=== PATIENT | male | born 1965 | race Caucasian/White ===

== ENCOUNTER 2022-10-27 10:21 | Emergency (ER) | payer BC, SELFPAY ==
[2022-10-27 10:23] VITALS: BP 133/85; PULSE 87; RESP 18; TEMP 36.3; O2SAT 100; BMI 24.7
--- NOTE | 2022-10-27 10:37 | EX.ED.DYSGE1 ---
HPI History of Present Illness Chief Complaint: Other, Pain/Inj Detail of Chief Complaint: Hemorrhoid/rectal bleeding Informant: patient Narrative Narrative: Patient presents to the emergency department with concern that his hemorrhoid popped. Patient states that he developed a hemorrhoid about 4 5 days ago and had some rectal discomfort with a fleshy mass noted around his rectum. This morning he woke up and he had blood in his underwear. He has had history of hemorrhoids in the past. He denies fevers or chills. He denies abdominal pain. He denies any trauma to his rectum. PFSH PFSH Allergy/AdvReac Type Severity Reaction Status Date / Time No Known Allergies Allergy Verified 10/27/22 10:25 ROS ROS ED Review of Systems ROS Unobtainable: other Constitutional Constitutional ED: Reports lethargy; Denies chills, fever(s), sweats or weight loss Eyes Eyes: Denies blurry vision, change in vision or diplopia ENT ENT ED: Denies rhinorrhea or sore throat Cardiovascular Cardiovascular: Denies chest pain, orthopnea or racing heartbeat Respiratory/Chest Respiratory/Chest: Denies cough, dyspnea, dyspnea on exertion, orthopnea or sputum Gastrointestinal Gastrointestinal: Reports other Details: Hemorrhoid with rectal bleeding ; Denies abdominal pain, diarrhea, nausea or vomiting Genitourinary Genitourinary ED: Denies dysuria, hematuria or urinary frequency Musculoskeletal Musculoskeletal: Denies arthralgias, back pain, myalgias or neck pain Integumentary Denies abscess, Abrasions or rash Neurologic Neurologic: Denies headache(s) or weakness Psychiatric Psychiatric: Denies anxiety, depression or suicidal thoughts Endocrine Endocrinology: Denies polydipsia, polyphagia or polyuria Hematologic/Lymphatic Hematologic/Lymphatic: Denies easy bleeding, easy bruising or lymphadenopathy Allergic/Immunologic Allergic/Immunologic ED: Denies mouth swelling, tongue swelling or urticaria EXAM Physical Exam Const Vital Signs: 10/27/22 10:23 Temperature 97.3 F L Temperature Source Temporal Pulse Rate 87 Respiratory Rate 18 Blood Pressure 133/85 H Blood Pressure Mean 101 Pulse Ox 100 Oxygen Delivery Method Room Air Positive well nourished and well developed General Appearance ED: well developed and NAD HEENT Reports TM's clear and moist mucous membranes normocephalic and atraumatic; Negative for trauma or tenderness Tympanic Membrane ED: Yes TM's clear Eyes PERRL and EOMs intact bilaterally General Eye ED: Negative for pale conjunctiva or scleral icterus Neck no lymphadenopathy, supple and no JVD General: Negative for tenderness Chest Wall inspection of chest normal and palpation of chest normal Chest: Negative for tenderness Resp normal respiratory effort and clear to auscultation bilaterally Effort and Inspection: Negative for respiratory distress or pain with movement Auscultation: Negative for rhonchi, wheezes or diminished lung sounds Cardio regular rate, regular rhythm, S1 normal heart sound, S2 normal heart sound and no murmurs Peripheral Pulses: pulses 2+ throughout GI normal to inspection, nondistended, normoactive bowel sounds, soft to palpation, non-tender, non-distended and no masses GI Narrative: On rectal exam patient noted to have a thrombosed hemorrhoid about the 3 o'clock position. The hemorrhoid is thrombosed and ulcerated. Back/Spine no CVA tenderness and no thoracic nor lumbar tenderness Extremity normal to inspection General Extremety ED: Negative for edema General Extremity: Negative for edema Neuro oriented x3, CN's II-XII intact bilaterally, no sensory deficits noted and gait normal Sensorium / Orientation: awake, alert, oriented to person, oriented to place and oriented to time Motor Exam: strength 5/5 throughout and strength abnormal Psych mental status grossly normal Skin no rashes or lesions noted and no wounds MDM MDM MDM Narrative Medical decision making narrative: Patient has a thrombosed hemorrhoid that is ulcerated. I recommended making a small incision and removing the clot. Patient in agreement. Using an 11 blade I made a small 1 cm incision in the thrombosed portion of the hemorrhoid and large amount of clot was extracted. Patient tolerated procedure well. Dressing applied. I advised patient on warm sits baths. Recommended [id number] Preparation H or Anusol. Patient to follow-up with his primary care physician 3 to 5 days. Discharge Plan Triage Chief Complaint: Other, Pain/Inj ED Provider: Sammy Sanchez Dx/Rx/DC Orders Clinical Impression: External hemorrhoid, thrombosed Instructions: ED Hemorrhoids Primary Care Provider: Sander Villanueva,Out of Referrals: Sander Villanueva,Out of [Primary Care Provider] - 3-5 Days Activity Restrictions/Additional Instructions: You may use [id number] Preparation H or Anusol for further treatment. Please do warm sitz bath's daily for the next 4 to 5 days. Disposition Disposition: Home, Self Care
== END 2022-10-27 11:07 | disposition home or self-care (01) ==
LOC: ED 10:49
PROVIDERS: Emergency Provider Emergency Medicine; PCP Student in an Organized Health Care Education/Training Program; Visit Provider Emergency Medicine
DX: K64.5 Perianal venous thrombosis (principal); K62.5 Hemorrhage of anus and rectum
CPT/HCPCS: 46083; 99282

== ENCOUNTER 2023-05-31 12:40 | Observation (INO) | payer BC, SELFPAY ==
[2023-05-31 11:39] VITALS: BMI 22.3
[2023-05-31 11:40] VITALS: BP 147/112; PULSE 83; RESP 18; TEMP 36.6; O2SAT 94
--- NOTE | 2023-05-31 12:43 | HP.PCM.HOS_ITS ---
[facility] - General General Date of Admission: 05/31/23 Date of Service: 05/31/23 Chief Complaint: Progressive worsening of shortness of breath for 1 and half weeks. HPI Narrative JEFFREY PINEDA, is a 57 M with no diagnosed prior medical problem is directly admitted from [place] ED for shortness of breath progressively worsening for 1 and half weeks. Patient is stated it started gradually and then over a period of 1011 days and got worse and worse to the point that he gets short of breath even on mild exertion going to bathroom or at rest. Patient had mild chest discomfort in the center localized without radiation to arm, neck, jaws or back. It said it was very mild neck -09/09 lasted for few minutes. I do not see EKG from [place] [facility] in the chart. Vitals from the [place] [facility] reviewed. Vitals in normal range. Pulse ox 100% on room air. Chest x-ray and CTPA reviewed. Patient has CAD and will send to radiology to upload into PACS. Chest x-ray showed ill-defined airspace opacity in peripheral midline. Chest CTPA reported no PE but mild interstitial edema. Vascular congestion with acute interstitial edema and enlarged heart. Small right pleural effusion trace pleural fluid in the fissures bilaterally. No dense consolidation. Nonspecific mediastinal and hilar lymphadenopathy probably reactive. Social history: Patient is smokes cigarettes, 1 and half pack last 1 week. Drinks alcohol, beer 7-8 daily at nighttime. Denies substance use or IVDA. Family history: Patient's mother had pacemaker probably have some cardiac condition but unclear what was the specific diagnosis. He stated her mother . Father does not have any cardiac problems. [facility] Allergy/AdvReac Type Severity Reaction Status Date / Time tree and shrub pollen Allergy Shortness Verified 05/31/23 12:01 of breath Social History Smoking Status: Current every day smoker tobacco type: cigarettes ROS ROS Narrative Constitutional: Reports subacute fatigue and weakness for 2 weeks. No fever. HEENT: Reports systems reviewed and no addt'l complaints, except as documented Respiratory/Chest: As described in HPI CVS: As described in HPI Gastrointestinal: Denies coffee ground emesis, hematemesis or vomiting Genitourinary: Denies burning urination or new urinary tract symptoms Musculoskeletal: Denies acute joint pain or limited range of motion. No acute injury Neurologic: Denies seizure-like symptoms. skin: No ulcer. No rash Endocrinology: Reports systems reviewed and no addt'l complaints, except as documented Hematologic/Lymphatic: Reports systems reviewed and no addt'l complaints, except as documented Rest 14 ROS are negative except as mentioned in HPI Vital Signs Vital Signs Vital Signs: 05/31/23 11:40 05/31/23 12:04 Temperature 97.8 F Temperature Source Temporal Pulse Rate 83 Respiratory Rate 18 Respiratory Effort Normal Non-Labored Respiratory Depth Normal Respiratory Pattern Normal Blood Pressure 147/112 H Blood Pressure Mean 123 Blood Pressure Source Monitor Blood Pressure Position Sitting Blood Pressure Location Right Arm Pulse Ox 94 Oxygen Delivery Method Room Air Room Air Weight Weight: 174 lb Body Mass Index (BMI) 22.3 Physical Exam Narrative General: Alert, Oriented x3, Cooperative HEENT: Atraumatic, PERRLA, EOMI, Normocephalic Oral: Oral mucosa dry. No Gingival or Mucosal Lesions/ Ulcerations Neck: Supple, No JVD, Negative Carotid Bruits Lungs: Air entry diminished in bilateral lung bases. Fine crackles present. Cardiovascular: Regular rate, Regular Rhythm, Normal S1, Normal S2, No murmurs Abdomen: Bowel Sounds Present, Soft, Non Tender, Non-Distended : No renal angle tenderness. No suprapubic tenderness. Extremities: Mild 1+ pitting bilateral ankle edema, Capillary Refill Less than 3 Seconds Skin: No rashes, No breakdown Musculoskeletal: No Tenderness to Palpation of Joints or Extremities. ROM full and adequate. Muscle strength 5/5 at major joints. Neurological: Cranial nerves II-XII grossly intact, DTR 2+/4. No acute focal neurological deficit. Psych/Mental Status: Normal Affect, Appropriate. Assessment & Plan Assessment/Plan (1) Heart failure: QUALIFIERS: Heart failure type: unspecified Heart failure chronicity: acute Qualified Code(s): I50.9 - Heart failure, unspecified PLAN: Plan 57-year-old gentleman being admitted directly from [place] [facility] for subacute onset of shortness of breath for 10 days. 1. subacute shortness of breath/dyspnea due to acute heart failure, exact clas sification, etiology and severity unclear: Patient is admitted in PCU. Labs reviewed. Patient's proBNP 4266. Serial troponins 1716 and 16. Pulmonary embolism ruled out. Twelve-lead EKG done here normal sinus rhythm, 85 bpm, LAD, LVH with repolarization abnormality QTc 462 ms. Patient had Lasix 10 mg IV and aspirin 325 mg 1 dose in [place] [facility]. Started on Lasix 40 mg IV twice daily. Heart failure core measures including intake and output, fluid restriction less than 1500 mL, daily weight monitoring, kidney and electrolytes monitoring. 2D echo ordered. COVID-19 PCR, RSV PCR and COVID-19 PCR not detected. 2. Elevated blood pressure Without diagnosis of hypertension: Patient blood pressure here 147/112. We will not need to monitor blood pressure during hospitalization and that ambulatory or home BP monitoring to diagnose hypertension. Patient last saw PCP 4 years ago currently does not have PCP. 3. VTE prophylaxis moderate risk: Lovenox 40 mill subcu daily. Living will/advanced directive/end of life care: Patient does not have living will or advanced directive. After discussion of benefits/risks procedures involved with full code, DNR CC arrest and DNR CC, the patient opted for full code. Patient does want artificial life support including intubation, tube feed, ventilator and/chest compression, central venous catheter, vasopressor and DC shock if needed Total time spent in [id number] encounter in discussion of advanced directive 17 minutes. Charges/Coding Visit Charges Inpatient E&M: 80807 Init Hosp L3 Procedures Hospitalists Procedures: 47859 Advncd Care Plan 30 Min
--- NOTE | 2023-05-31 13:02 | ECHOCS_ITS ---
Reason For Study: Dyspnea/SOB Procedure This was a 2D Doppler, Color Flow transthoracic echocardiogram. Contrast injection was performed. Exam performed portable in patient room. Left Ventricle Moderately dilated left ventricle. The estimated ejection fraction is 10-15 %. Stage 3 diastolic dysfunction. There is severe global hypokinesis of the left ventricle. Right Ventricle Normal RV size. Normal systolic function. Atria The left atrium is mildly enlarged. The right atrium is mildly enlarged. No doppler evidence for ASD. Mitral Valve There is no mitral valve stenosis. Moderate (2+) mitral valve insufficiency. Tricuspid Valve There is no tricuspid stenosis. Mild tricuspid valve insufficiency. Pulmonary artery systolic pressure is 50-55 mmHg. Aortic Valve Trisinus/trileaflet aortic valve. There is no aortic stenosis. Mild-Moderate (1-2+) aortic valve insufficiency. Pulmonic Valve There is no pulmonic valvular stenosis. Mild (1+) pulmonic valve insufficiency. Great Vessels Normal aortic root. Pericardium/Pleural No pericardial effusion. Medication Diluted definity 2ml given slow IV push to enhance endocardial definition. MMode/2D Measurements & Calculations LVIDd: 7.1 cm IVSd: 0.85 cm Ao root diam: 3.6 cm LVIDs: 6.6 cm LVPWd: 0.74 cm RVDd: 4.6 cm FS: 6.5 % LAV(MOD-bp): 91.4 ml LVAd ap4: 59.5 cm2 SV(MOD-sp4): 52.5 ml LAV(MOD-bp) Indexed: 44.6 ml/m2 LVLd ap4: 10.0 cm LAV(MOD-sp2): 98.9 ml EDV(MOD-sp4): 290.3 ml LAV(MOD-sp4): 80.8 ml EDV(sp4-el): 301.0 ml LVAs ap4: 51.5 cm2 LVLs ap4: 9.2 cm ESV(MOD-sp4): 237.7 ml ESV(sp4-el): 245.6 ml EF(MOD-sp4): 18.1 % EF(sp4-el): 18.4 % SV(sp4-el): 55.3 ml LA A4 area: 24.6 cm2 LA dimension(2D): 5.1 cm RA A4 area: 21.7 cm2 TAPSE: 2.0 cm Time Measurements MV dec time: 0.12 sec Doppler Measurements & Calculations MV E max forrest: 76.5 cm/sec Lat Peak E' Forrest: 7.5 cm/sec Med Peak E' Forrest: 3.5 cm/sec MV A max forrest: 34.9 cm/sec E/E' lat: 10.1 E/E' med: 21.6 MV E/A: 2.2 MV dec slope: 658.7 cm/sec2 Ao V2 max: 106.1 cm/sec AI max forrest: 396.1 cm/sec Ao max P.5 mmHg AI max P.8 mmHg Ao V2 mean: 88.5 cm/sec AI dec slope: 308.2 cm/sec2 Ao mean P.3 mmHg AI P1/2t: 376.3 msec Ao V2 VTI: 18.2 cm AV (velocity ratio): 0.76 LV V1 max: 81.3 cm/sec PA V2 max: 74.8 cm/sec PI end-d forrest: 198.9 cm/sec LV V1 max P.6 mmHg LV V1 mean P.6 mmHg LV V1 mean: 60.4 cm/sec LV V1 VTI: 13.8 cm TR max forrest: 360.7 cm/sec TR max P.0 mmHg ECHO/Echo Complete W/ Contrast Interpretation Summary The estimated ejection fraction is 10-15 %. Stage 3 diastolic dysfunction. There is severe global hypokinesis of the left ventricle. The left atrium is mildly enlarged. The right atrium is mildly enlarged. Moderately dilated left ventricle. Moderate (2+) mitral valve insufficiency. Mild-Moderate (1-2+) aortic valve insufficiency. Ordering Physician: Christos Wynn Referring Physician: Evelyn Qiu Performed By: Rut Bryson, RDCS, RVT
--- NOTE | 2023-05-31 13:05 | EKG12_ITS ---
Test Reason : CP ADMIT Blood Pressure : / mmHG Vent. Rate : 085 BPM Atrial Rate : 085 BPM P-R Int : 184 ms QRS Dur : 104 ms QT Int : 388 ms P-R-T Axes : 040 -43 092 degrees QTc Int : 461 ms Normal sinus rhythm Possible Left atrial enlargement Left axis deviation Left ventricular hypertrophy with repolarization abnormality ( Dickerson product ) Abnormal ECG No previous ECGs available Confirmed by PHOENIX SHIN, NITHYA ([id number]), food editor MELISSA GLASGOW ([id number]) on 06/12/2023 11:16:35 AM Referred By: NIECY Confirmed By:JANEEN GARIBAY MD
[2023-05-31] MEDS: Furosemide 40 MG/4 ML Vial IV ×2 (13:19→17:32)
[2023-05-31] MEDS: Lisinopril 5 MG Tablet PO (13:19)
[2023-05-31] MEDS: Aspirin E.C. 81 MG Tablet PO (13:19)
[2023-05-31] MEDS: 0.9% Saline Lock 10 ML Syringe IV ×2 (13:20→17:32)
[2023-05-31 13:39] LABS: Magnesium 2.2 mg/dL (1.6-2.6); Troponin-I HS 114 pg/mL (3.0-78.0)
[2023-05-31 14:19] VITALS: O2SAT 98
[2023-05-31 15:22] LABS: Troponin-I HS 113 pg/mL (3.0-78.0)
[2023-05-31 15:40] VITALS: BP 97/62; PULSE 86; RESP 18; TEMP 36.8; O2SAT 97
[2023-05-31] MEDS: Enoxaparin 40 MG/0.4 ML Syringe SC (15:43)
[2023-05-31 19:59] LABS: Troponin-I HS 118 pg/mL (3.0-78.0)
[2023-05-31 21:40] VITALS: BP 106/77; PULSE 87; RESP 16; TEMP 36.9; O2SAT 100
[2023-05-31 22:00] VITALS: PULSE 87
[2023-05-31] MEDS: Atorvastatin Calcium 40 MG Tablet PO (22:41)
[2023-06-01 02:21] VITALS: BMI 21.1
[2023-06-01 04:00] VITALS: BP 92/67; PULSE 65; RESP 16; TEMP 36.6; O2SAT 99
[2023-06-01 05:28] LABS: Absolute Lymphocyte Count 1.61 X10^3/uL (0.83-4.51); Absolute Neutrophil Count 4.2 X10^3/uL (2.0-7.7); Basophil# 0.07 X10^3/uL; Eosinophil# 0.25 X10^3/uL; Eosinophils% 3.5 % (0-5); Hemoglobin 15.5 g/dL (13.0-16.5); Lymphocyte # 1.61 X10^3/ul (0.83-4.51); Lymphocyte % 22.6 % (19-41); Mean Corp Hgb Conc 33.7 g/dL (32-36); Mean Platelet Vol. 11.3 fl (6.2-12.0); Monocyte# 0.96 X10^3/uL; Monocyte% 13.5 % (0-10); NRBC Flagged by Analyzer 0 % (0-5); Neutrophil # 4.22 X10^3/uL (2.7-7.7); Neutrophil % 59.1 % (47-70); Platelet Count 250 K/mm3 (150-450); RBC Distribution Width CV 13.2 % (11.6-14.6); RBC Distribution Width SD 44.5 fl (35.1-43.9); White Blood Count 7.1 K/mm3 (4.4-11.0)
--- NOTE | 2023-06-01 05:55 | RAD_ITS ---
STUDY: X-RAY CHEST REASON FOR EXAM: Male, 57 years old. Sob TECHNIQUE: PA and lateral views of the chest. COMPARISON: None. FINDINGS: EKG electrodes are seen. The lungs are clear and expanded. There is no demonstrated pleural abnormality. Normal size heart. Normal mediastinum and remington. Normal visualized pulmonary arteries. Normal visualized aortic arch and descending thoracic aorta. There are diffuse degenerative changes of the visualized thoracic spine. Normal visualized ribs, clavicles, and shoulders. There is no demonstrated abnormality of the visualized soft tissue structures of the upper abdomen. RAD/Chest PA and Lateral IMPRESSION: No acute abnormality is seen. Electronically Signed: Manuel Butler MD at 11:10 EDT ,
[2023-06-01 06:45] LABS: Anion Gap 9 (5-15); BUN 19 mg/dL (7-18); BUN/Creat Ratio 20.3 RATIO (10-20); Chloride 105 mmol/L (98-107); Cholesterol 157 mg/dL (200); Creatinine, Serum 0.94 mg/dL (0.70-1.30); EST Glomerular Filtration Rate 89 mL/min (>60); Est Glom Filt Rate - Afr Amer 107 mL/min (>60); Estimated Creatinine Clearance 93.69 ml/min; Glucose 92 mg/dL (74-106); High Density Lipoprotein 70 mg/dL; Potassium 3.8 mmol/L (3.5-5.1); Sodium Level 142 mmol/L (136-145); Thyroid Stim Hormone (TSH) 1.35 uIU/mL (0.358-3.74); Triglycerides 89 mg/dL; Very Low Density Lipoprotein 18 mg/dL (5-40)
[2023-06-01 06:51] VITALS: O2SAT 93
[2023-06-01] MEDS: Aspirin E.C. 81 MG Tablet PO (08:46)
[2023-06-01 10:12] VITALS: BP 97/74; PULSE 77; RESP 16; TEMP 36.4; O2SAT 97
[2023-06-01] MEDS: Furosemide 40 MG/4 ML Vial IV (10:12)
[2023-06-01] MEDS: Enoxaparin 40 MG/0.4 ML Syringe SC (10:12)
[2023-06-01] MEDS: 0.9% Saline Lock 10 ML Syringe IV (10:13)
--- NOTE | 2023-06-01 11:42 | DCINST_ITS ---
Discharge Instructions Diet Discharge Diet: 6 Cup Fluid Restriction and 2000 mg Sodium Diet Activity Discharge Activity: Return to Normal Activity Weight Bearing Status: Weight bearing as tolerated Dressing / Incision Call your doctor if you observe: Fever of 101 or Higher, Coldness, Increased Pain, Numbness or Tingling, Change in Color, Inability to urinate, Inability to have a bowel movement, Shortness of breath, Dizziness, Fainting spells, Swelling in the ankles, Chest pain, Prolonged hiccupping, Increased palpitations (irregular heartbeat), Calf discomfort and Uncontrolled pain Follow Up Care Test Results: Test results from this visit will be discussed in further detail at your follow- up appointment, if applicable. Discharge Plan Admission Admit Date/Time: 05/31/23 12:47 Primary Reason for Your Visit: Acute systolic HF Attending Provider: Christos Wynn Primary Care Provider: Evelyn Qiu Consulting Providers: Mena Lin; Christos Wynn Instructions Additional Instructions / Restrictions: Advised BMP, magnesium and phosphorus in 1 week on diuretics follow-up with PCP Discharge Orders/Prescriptions Prescriptions: New atorvastatin 40 mg Tablet 40 mg PO QHS Qty: 30 2RF aspirin 81 mg Tablet,Delayed Release (Dr/Ec) 81 mg PO DAILY@0800 30 Days Qty: 30 3RF lisinopril 5 mg Tablet 2.5 mg PO DAILY Qty: 30 2RF metoprolol succinate 25 mg tablet extended release 24 hr 25 mg PO DAILY Qty: 30 3RF Rx Instructions: Hold for heart less than 50 or systolic blood pressure less than 90 mmHg. furosemide [Lasix] 40 mg tablet 40 mg PO BID Qty: 60 2RF Rx Instructions: Take additional 40 mg dose at 5 PM for increased leg swelling or weight gain 5 pounds in 1 week. spironolactone 25 mg tablet 12.5 mg PO DAILY Qty: 30 2RF Rx Instructions: Advised to hold if serum potassium more than 5.0. Referrals / Follow Up: Angela Dan MD [Med Staff - Active Staff] - See Referral Note (Follow-up on June 14) Evelyn Qiu MD [Primary Care Provider] - Within 1 Week Disposition Disposition (needs filled in before D/C Order can be placed): Home, Self Care
--- NOTE | 2023-06-01 11:59 | DS.PCM_ITS ---
Providers Date of Admission: 05/31/23 Date of Discharge: 06/01/23 Primary Care Physician: Dr. Evelyn Qiu MD Reason For Visit: CHF Diagnosis Discharge Diagnosis (1) Heart failure: Status: Acute Code(s): I50.9 - Heart failure, unspecified Qualifiers: Heart failure chronicity: acute Heart failure type: unspecified Qualified Code(s): I50.9 - Heart failure, unspecified Plan 57-year-old gentleman being admitted directly from [place] [facility] for subacute onset of shortness of breath for 10 days. 1. subacute shortness of breath/dyspnea due to acute heart failure, exact classification, etiology and severity unclear: Patient is admitted in PCU. Labs reviewed. Patient's proBNP 4266. Serial troponins 1716 and 16. Pulmonary embolism ruled out. Twelve-lead EKG done here normal sinus rhythm, 85 bpm, LAD, LVH with repolarization abnormality QTc 462 ms. Patient had Lasix 10 mg IV and aspirin 325 mg 1 dose in [place] [facility]. Started on Lasix 40 mg IV twice daily. Heart failure core measures including intake and output, fluid restriction less than 1500 mL, daily weight monitoring, kidney and electrolytes monitoring. 2D echo ordered. COVID-19 PCR, RSV PCR and COVID-19 PCR not detected. 06/01/2023: Patient shortness of breath much improved. Patient pulse ox 97% on room air. Heart rate 77, BP 97/74. Lasix decreased to 40 mg daily. night monitor shows sinus rhythm with PVCs and artifacts and one-time pulsus bigeminy. PA and lateral chest x-ray is done and individually reviewed. Lungs are expanded and clear. Normal visualized pulmonary arteries. It is reported as no acute abnormality. 2D echo reported EF 10 to 15%. Stage III diastolic dysfunction, severe global hypokinesis and moderately dilated LV function. LA and RA mildly enlarged. Moderate 2+ MR. 1-2+ AI. Discussed with the escapement maker Dr. Guerrier. Patient serial troponins are александр teaued with no significant delta change. 114, 113 and 118. Patient does not have chest pain. Mildly elevated troponins most probably due to acute myocardial injury from CHF exacerbation/increased cardiac demand. Labs reviewed. Fasting profile shows LDL 69, TC 157, HDL 70 TG 89. Patient not on any home medication. Prescriptions given for baby aspirin, metoprolol succinate, low-dose lisinopril 2.5 mg daily, spironolactone 12.5 mg daily and furosemide 40 mg daily with instruction to take an additional 40 mg dose at 5 PM for increased leg swelling or weight gain 5 pounds in [address]. [address] Guerrier and no need for advanced if patient does not have malignant arrhythmia significant NSVT or V. tach. 2. Elevated blood pressure Without diagnosis of hypertension: Patient blood pressure here 147/112. We will not need to monitor blood pressure during hospitalization and that ambulatory or home BP monitoring to diagnose hypertension. Patient last saw PCP 4 years ago currently does not have PCP. 06/01: Blood pressure is on lower side systolic 90s. Probably blood pressure was elevated due to increased sympathetic drive from heart failure exacerbation. 3. VTE prophylaxis moderate risk: Lovenox 40 mill subcu daily. Living will/advanced directive/end of life care: Patient does not have living will or advanced directive. After discussion of benefits/risks procedures involved with full code, DNR CC arrest and DNR CC, the patient opted for full code. Patient does want artificial life support including intubation, tube feed, ventilator and/chest compression, central venous catheter, vasopressor and DC shock if needed Discharge medication reconciliation done. Discharge follow-up instructions completed. Discharge process discussed with the patient and all questions were answered to patient's satisfaction. Total time spent, exact 35 minutes on discharge meds reconciliation, examination, coordination of care with nurses and ancillary staff, review of imaging and blood test and discussion with the patient on follow-up instructions. Clinical Impression(s) from Imaging Studies Echocardiogram 05/31/23 13:02 Interpretation Summary The estimated ejection fraction is 10-15 %. Stage 3 diastolic dysfunction. There is severe global hypokinesis of the left ventricle. The left atrium is mildly enlarged. The right atrium is mildly enlarged. Moderately dilated left ventricle. Moderate (2+) mitral valve insufficiency. Mild-Moderate (1-2+) aortic valve insufficiency. Chest X-Ray 06/01/23 05:55 IMPRESSION: No acute abnormality is seen. Laboratory Results 05/31/23 13:15: Phosphorus 4.0, Magnesium 2.2, Troponin I High Sens 114 H 05/31/23 14:43: Troponin I High Sens 113 H 05/31/23 19:19: Troponin I High Sens 118 H 06/01/23 04:34: WBC 7.1, RBC 5.00, Hgb 15.5, Hct 46.0, MCV 92.0, MCH 31.0, MCHC 33.7, RDW Std Deviation 44.5 H, RDW Coeff of Charlie 13.2, Plt Count 250, MPV 11.3, Immature Gran % (Auto) 0.300, Neut % (Auto) 59.1, Lymph % (Auto) 22.6, [place] % (Auto) 13.5 H, Eos % (Auto) 3.5, Baso % (Auto) 1.0, Absolute Neuts (auto) 4.2, Absolute Lymphs (auto) 1.61, Nucleated RBC % 0, Sodium 142, Potassium 3.8, Chloride 105, Carbon Dioxide 28.0, Anion Gap 9, BUN 19 H, Creatinine 0.94, Estim Creat Clear Calc 93.69, Est GFR (MDRD) Af Amer 107, Est GFR (MDRD) Non-Af 89, BUN/Creatinine Ratio 20.3 H, Glucose 92, Calcium 9.0, Triglycerides 89, Cholesterol 157, LDL Cholesterol 69, VLDL Cholesterol 18, HDL Cholesterol 70, TSH 1.35 Medications at Discharge Home Medications aspirin 81 mg tablet,delayed release 81 mg PO DAILY@0800 30 days #30 tabs 06/01/23 atorvastatin 40 mg tablet 40 mg PO QHS #30 tabs 06/01/23 furosemide 40 mg tablet (Lasix) 40 mg PO BID #60 tabs 06/01/23 lisinopril 5 mg tablet 2.5 mg (1/2 x 5 mg) PO DAILY #30 tabs 06/01/23 metoprolol succinate 25 mg tablet,extended release 24 hr 25 mg PO DAILY #30 tabs 06/01/23 spironolactone 25 mg tablet 12.5 mg (1/2 x 25 mg) PO DAILY #30 tabs 06/01/23 Physical Exam Narrative Seen and examined. night monitor reviewed. PVCs. Patient shortness of breath has much improved. Patient walking to the bathroom with no shortness of breath or palpitation. No chest pain. Physical exam: General: Alert, Oriented x3, Cooperative HEENT: Atraumatic, PERRLA, EOMI, Normocephalic Oral: Oral mucosa dry. No Gingival or Mucosal Lesions/ Ulcerations Neck: Supple, No JVD, Negative Carotid Bruits Lungs: Air entry diminished in bilateral lung bases. No tachypnea or hypoxia. Dyspnea resolved. Cardiovascular: Regular rate, Regular Rhythm, Normal S1, Normal S2, soft systolic murmur over LLSB. Diastolic murmur over right second ICS. Abdomen: Bowel Sounds Present, Soft, Non Tender, Non-Distended : No renal angle tenderness. No suprapubic tenderness. Extremities: Mild 1+ pitting bilateral ankle edema, Capillary Refill Less than 3 Seconds Skin: No rashes, No breakdown Musculoskeletal: No Tenderness to Palpation of Joints or Extremities. ROM full and adequate. Muscle strength 5/5 at major joints. Neurological: Cranial nerves II-XII grossly intact, DTR 2+/4. No acute focal neurological deficit. Psych/Mental Status: Normal Affect, Appropriate. Weight / BMI Weight Weight: 164 lb 7.437 oz Body Mass Index (BMI) 21.1 ABG / Lab / Microbiology Data 06/01/23 04:34 06/01/23 04:34 Laboratory: Laboratory Results - last 24 hr 05/31/23 13:15: Phosphorus 4.0, Magnesium 2.2, Troponin I High Sens 114 H 05/31/23 14:43: Troponin I High Sens 113 H 05/31/23 19:19: Troponin I High Sens 118 H 06/01/23 04:34: WBC 7.1, RBC 5.00, Hgb 15.5, Hct 46.0, MCV 92.0, MCH 31.0, MCHC 33.7, RDW Std Deviation 44.5 H, RDW Coeff of Charlie 13.2, Plt Count 250, MPV 11.3, Immature Gran % (Auto) 0.300, Neut % (Auto) 59.1, Lymph % (Auto) 22.6, [place] % (Auto) 13.5 H, Eos % (Auto) 3.5, Baso % (Auto) 1.0, Absolute Neuts (auto) 4.2, Absolute Lymphs (auto) 1.61, Nucleated RBC % 0, Sodium 142, Potassium 3.8, Chlor jayden 105, Carbon Dioxide 28.0, Anion Gap 9, BUN 19 H, Creatinine 0.94, Estim C reat Clear Calc 93.69, Est GFR (MDRD) Af Amer 107, Est GFR (MDRD) Non-Af 89, BUN/Creatinine Ratio 20.3 H, Glucose 92, Calcium 9.0, Triglycerides 89, Cholesterol 157, LDL Cholesterol 69, VLDL Cholesterol 18, HDL Cholesterol 70, TSH 1.35 Radiography Diagnostic Testing: Radiology Impression Echocardiogram 05/31/23 13:02 Interpretation Summary The estimated ejection fraction is 10-15 %. Stage 3 diastolic dysfunction. There is severe global hypokinesis of the left ventricle. The left atrium is mildly enlarged. The right atrium is mildly enlarged. Moderately dilated left ventricle. Moderate (2+) mitral valve insufficiency. Mild-Moderate (1-2+) aortic valve insufficiency. Ordering Physician: Christos Wynn Referring Physician: Evelyn Qiu Performed By: Rut Bryson, YESENIA, RVT Chest X-Ray 06/01/23 05:55 IMPRESSION: No acute abnormality is seen. Electronically Signed: Manuel Butler MD at 11:10 EDT Reading Location ID and State: 3 [facility] , Service support , D/C Instructions Discharge Diet: 6 Cup Fluid Restriction and 2000 mg Sodium Diet Weight Bearing Status: Weight bearing as tolerated Call your doctor if you observe: Fever of 101 or Higher, Coldness, Increased Pain, Numbness or Tingling, Change in Color, Inability to urinate, Inability to have a bowel movement, Shortness of breath, Dizziness, Fainting spells, Swelling in the ankles, Chest pain, Prolonged hiccupping, Increased palpitations (irregular heartbeat), Calf discomfort and Uncontrolled pain Meaningful Use Info Meaningful Use Diagnoses (Choose all that apply): CHF CHF EMILY/ARB ordered at discharge?: Yes Documented LVEF (%): 15 Discharge Plan Admission Admit Date/Time: 05/31/23 12:47 Primary Reason for Your Visit: Acute systolic HF Attending Provider: Christos Wynn Primary Care Provider: Evelyn Qiu Consulting Providers: Mena Lin; Christos Wynn Instructions Additional Instructions / Restrictions: Advised BMP, magnesium and phosphorus in 1 week on diuretics follow-up with PCP Discharge Orders/Prescriptions Prescriptions: New atorvastatin 40 mg Tablet 40 mg PO QHS Qty: 30 2RF aspirin 81 mg Tablet,Delayed Release (Dr/Ec) 81 mg PO DAILY@0800 30 Days Qty: 30 3RF lisinopril 5 mg Tablet 2.5 mg PO DAILY Qty: 30 2RF metoprolol succinate 25 mg tablet extended release 24 hr 25 mg PO DAILY Qty: 30 3RF Rx Instructions: Hold for heart less than 50 or systolic blood pressure less than 90 mmHg. furosemide [Lasix] 40 mg tablet 40 mg PO BID Qty: 60 2RF Rx Instructions: Take additional 40 mg dose at 5 PM for increased leg swelling or weight gain 5 pounds in 1 week. spironolactone 25 mg tablet 12.5 mg PO DAILY Qty: 30 2RF Rx Instructions: Advised to hold if serum potassium more than 5.0. Referrals / Follow Up: Angela Dan MD [Med Staff - Active Staff] - See Referral Note (Follow-up on June 14) Evelyn Qiu MD [Primary Care Provider] - Within 1 Week Disposition Disposition (needs filled in before D/C Order can be placed): Home, Self Care Charges/Coding Visit Charges Inpatient E&M: 31991 Disch Hosp >30min
--- NOTE | 2023-06-01 12:25 | CASEMGMT ---
JOCELYNE LORENZANA Face to Face with patient for initial transition planning/care coordination assessment. RN CM introduced self and role at [facility]. Patient lying in bed, alert and oriented. Patient willing to participate in assessment and is able to answer all questions appropriately. Care providers, pharmacy, and demographics verified. Patient wishes to discharge home, denies need for home health at this time. Patient states he has no further needs or concerns at this time. CM to follow for discharge planning needs that may arise. PCP: None, PCP list provided to patient Specialists: none, scheduled to follow-up with Dr Bardales Preferred Pharmacy: [facility] Insurance: [place] Prescription Benefit: yes Living Will/HPOA: none LNOK: Girlfriend, son Living Arrangements: Patient lives with girlfriend and son in a 2 story home. Patient is independent and able to ambulate stairs. Transportation: self, girlfriend DME/HHC: Patient has crutches. No previous HHC or SNF. [facility]position Plan: [facility] with family support and follow-up plans in place. Ngozi RAMESH, RN, CM
[2023-06-01 13:05] VITALS: BP 99/72; PULSE 96; RESP 18; TEMP 36.7; O2SAT 97
[2023-06-01] MEDS: Lisinopril 2.5 MG Tablet PO (13:18)
== END 2023-06-01 14:45 | disposition home or self-care (01) ==
PROVIDERS: Admitting Provider Student in an Organized Health Care Education/Training Program; PCP Student in an Organized Health Care Education/Training Program; Visit Provider Internal Medicine
DX: I50.21 Acute systolic (congestive) heart failure (principal); F17.210 Nicotine dependence, cigarettes, uncomplicated; R03.0 Elevated blood-pressure reading, without diagnosis of hypertension; R07.89 Other chest pain; R06.02 Shortness of breath
CPT/HCPCS: 36415; 71046; 80048; 80061; 83735; 84100; 84443; 84484; 85025; 93005; 93306; 94668; 96372; 96374; 96376; 99221; 99406; Q9957; A4216; C8929; G0378; G0379; J1940

== ENCOUNTER → 2023-06-14 | Outpatient (CLI) | payer BC, SELFPAY ==
[2023-06-14 13:21] LABS: ALB/GLOB Ratio 1.2 RATIO (0.9-2.4); AST(SGOT) 26 U/L (15-37); Alanine Aminotransfer ALT/SGPT 43 U/L (16-61); Albumin, Serum 3.8 g/dL (3.2-5.0); Alkaline Phosphatase 64 U/L (45-117); Anion Gap 9 (5-15); BUN 27 mg/dL (7-18); BUN/Creat Ratio 28.2 RATIO (10-20); Calcium,Total 8.6 mg/dL (8.5-10.1); Chloride 101 mmol/L (98-107); Creatinine, Serum 0.96 mg/dL (0.70-1.30); EST Glomerular Filtration Rate 86 mL/min (>60); Est Glom Filt Rate - Afr Amer 105 mL/min (>60); Ferritin 396 ng/mL (26-388); Globulin 3.3 g/dL (2.2-4.2); Glucose 101 mg/dL (74-106); Iron Binding Capacity,Total 394 ug/dL (250-450); Potassium 4.3 mmol/L (3.5-5.1); Protein, Total 7.1 g/dL (6.4-8.2); Sodium Level 135 mmol/L (136-145); Thyroid Stim Hormone (TSH) 1.05 uIU/mL (0.358-3.74)
== END | disposition home or self-care (01) ==
LOC: LAB 11:50
PROVIDERS: Referring Provider Internal Medicine Cardiovascular Disease; Visit Provider Internal Medicine Cardiovascular Disease
DX: E78.5 Hyperlipidemia, unspecified (principal); I42.9 Cardiomyopathy, unspecified; I50.22 Chronic systolic (congestive) heart failure; F10.10 Alcohol abuse, uncomplicated
CPT/HCPCS: 36415; 80053; 82728; 83550; 84443

== ENCOUNTER → 2023-08-01 | Outpatient (CLI) | payer BC, SELFPAY ==
--- OUTSIDE RECORDS SUMMARY | 2023-08-01 06:42 | XMS RPT_ITS | CCD ---
Author Name Unknown Address [address] [place] [address] Organization [facility] Care Team Providers Care Carnival Worker Name Role Phone DANIELLE BOWMAN Attending Unavailable SAMMIE, SIMRANJOT Referring Unavailable SAMMIE, SIMRANJOT Primary Care Unavailable DANIELLE BOWMAN Attending Unavailable SAMMIE, SIMRANJOT Referring Unavailable SAMMIE, SIMRANJOT Primary Care Unavailable DANIELLE BOWMAN Attending Unavailable SAMMIE, SIMRANJOT Referring Unavailable SAMMIE, SIMRANJOT Primary Care Unavailable DANIELLE BOWMAN Referring Unavailable SAMMIE, SIMRANJOT Primary Care Unavailable DANIELLE BOWMAN Attending Unavailable SAMMIE, SIMRANJOT Referring Unavailable SAMMIE, SIMRANJOT Primary Care Unavailable DANIELLE BOWMAN Attending Unavailable SAMMIE, SIMRANJOT Referring Unavailable SAMMIE, SIMRANJOT Primary Care Unavailable DANIELLE BOWMAN Attending Unavailable SAMMIE, SIMRANJOT Referring Unavailable SAMMIE, SIMRANJOT Primary Care Unavailable DANIELLE BOWMAN Attending Unavailable SAMMIE, SIMRANJOT Referring Unavailable SAMMIE, SIMRANJOT Primary Care Unavailable DANIELLE BOWMAN Attending Unavailable SAMMIE, SIMRANJOT Referring Unavailable SAMMIE, SIMRANJOT Primary Care Unavailable DANIELLE BOWMAN Attending Unavailable SAMMIE, SIMRANJOT Referring Unavailable SAMMIE, SIMRANJOT Primary Care Unavailable Problems Problem Classification Problem Date Documented Da te Episodic/Chronic Cancer of prostate (2 sources) Malignant neoplasm of prostate Onset: 06-25-2018 Chronic Results Test Name Value Interpretation Reference Range Facil ity Encounters Encounter Date Encounter Type Care Provider Facility Start: 05-31-2023 Emergency department patient visit Facility:[facility] Start: 02-07-2019 Patient encounter procedure DANIELLE GRIGSBY Facility:[facility] Start: 12-20-2018 Patient encounter procedure DANIELLE GRIGSBY Facility:[facility] Start: 09-27-2018 End: 09-27-2018 Patient encounter procedure DANIELLE BOWMAN Facility:[facility] Start: 07-27-2018 End: 07-27-2018 Patient encounter procedure DANIELLE BOWMAN Facility:[facility] Start: 07-12-2018 Patient encounter procedure DANIELLE GRIGSBY Facility:[facility] Start: 06-25-2018 End: 06-25-2018 Patient encounter procedure DANEILLE VOGELClaus Facility:[facility] Start: 06-18-2018 End: 06-18-2018 Patient encounter procedure DANIELLE BOWMAN Facility:[facility] Start: 06-11-2018 End: 06-12-2018 Patient encounter procedure DANIELLE BOWMAN Facility:[facility] Start: 05-07-2018 End: 05-07-2018 Patient encounter procedure DANIELLE BOWMAN Facility:[facility] Procedures Date Procedure Procedure Detail Performing Clinician Start: 09-19-2018 PSA screening DANIELLE GUERRERO Payers Date Payer Category Payer Unknown [id number] 1965 Unknown [id number] 2.16.8 [id number] 1965 Unknown [id number] .16.8 [id number] 1965 Unknown [id number] .16.8 [id number] 1965 Unknown [id number] 2.16.8 [id number] 1965 Unknown [id number] 2.16.8 [id number] 1965 Unknown [id number] 2.16.8 [id number] 1965 Unknown [id number] 2.16.8 [id number] 1965 Unknown [id number] .16.8 [id number] 1965 Unknown [id number] 2.16.8 [id number] 1965 Unknown [id number] Summary Purpose Family History No Family History Records FoundNo Family History Records FoundNo Family History Records Found Advance Directives No Advanced Directives Records FoundNo Advanced Directives Records FoundNo Advanced Directives Records Found Additional Source Comments (unrecognized sect ion and content) No Status Records FoundNo Status Records FoundNo Status Records Found INFORMATION SOURCE (unrecogn ized section and content) DATE CREATED AUTHOR AUTHOR'S ORGANIZ ATION 06/02/2023 [facility] DATE CREATED AUTHOR AUTHOR'S ORGANIZ ATION 06/08/2023 [facility] FOR RECORDS PERTAINING TO PATIENTS WHO ARE OR HAVE BEEN ENROLLED IN A CHEMICAL DEPENDENCY/SUBSTANCEABUSE PROGRAM, SOME INFORMATION MAY BE OMITTED. This clinical summary was aggregated from multiple sources. Caution should be exercised in using it in the provision of clinical care. This summary normalizes information from multiple sources, and as a consequence, information in this document may materially change the coding, format and clinical context of patient data. In addition, data may be omitted in some cases. CLINICAL DECISIONS SHOULD BE BASED ON THE PRIMARY CLINICAL RECORDS. [facility] [employer] provides no warranty or guarantee of the accuracy or completeness of information in this document.
--- NOTE | 2023-08-01 11:48 | STRESSREP_ITS ---
Stress Test Report Date: Procedure: Pharmacologic stress nuclear imaging study Indications: Cardiomyopathy Consent: Per the patient Procedure: The patient underwent pharmacologic (Regadenoson 0.4mg ) evaluation with a peak heart rate of 85 beats per minute (51%predicted maximal heart rate) and a peak blood pressure of 104/60 mmHg. The baseline ECG demonstrated sinus rhythm. The peak pharmacologic ECG demonstrated no ischemic changes. There were no cardiac dysrhythmias pretest, during pharmacologic infusion, or recovery. There was no complaint of chest discomfort during pharmacologic infusion or recovery. The patient was injected with 14.4 millicuries of technetium 99m Cardiolite and subsequently rest SPECT Cardiolite nuclear imaging was obtained in the horizontal long, vertical long, and short axis views. The patient underwent pharmacologic (Regadenoson) evaluation. The patient was injected with 44.0 millicuries of technetium 99m Cardiolite and subsequently stress SPECT Cardiolite nuclear imaging was obtained in the horizontal long, vertical long, and short axis views. A gated Cardiolite study at peak stress was obtained. The examination was stopped secondary to completion of protocol. Rest and stress SPECT Cardiolite nuclear imaging status post realignment, normalization, and attenuation correction demonstrate dilated left ventricle. Decreased tracer uptake post pharmacological stress suggests possibility of anterior ischemia. The gated study shows severe LV hypokinesis. The reported LVEF is 28%. Impression: 1. Pharmacologic (Regadenoson) evaluation 2. Peak pharmacologic ECG with no ischemic changes. 3. There were no cardiac dysrhythmias pretest, during pharmacologic infusion, or recovery. 5. Rest and stress SPECT Cardiolite nuclear imaging demonstrate possible anterior and apical ischemia. 6. The gated Cardiolite study reports an LVEF of 28%. This note was generated with [employer] software. It may contain incorrect words, spelling, and punctuation that were not noted in checking the note before signing.
== END | disposition home or self-care (01) ==
LOC: CVS 06:40
PROVIDERS: Referring Provider Internal Medicine Cardiovascular Disease; Visit Provider Internal Medicine Cardiovascular Disease
DX: I42.9 Cardiomyopathy, unspecified (principal); I50.22 Chronic systolic (congestive) heart failure
CPT/HCPCS: 78452; 93017; A9500; A4216; J2785

== ENCOUNTER → 2023-08-14 | Outpatient (CLI) | payer BC, SELFPAY ==
--- OUTSIDE RECORDS SUMMARY | 2023-08-14 15:17 | XMS RPT_ITS | CCD ---
Author Name Unknown Address [address] [place] [address] Organization [facility] Care Team Providers Care Pinmaker Name Role Phone DANIELLE BOWMAN Attending Unavailable [...] Facility Start: 05-31-2023 Emergency department patient visit Facility[facility] Start: 02-07-2019 Patient encounter procedure DANIELLE GRIGSBY Facility:[facility] Start: 12-20-2018 Patient encounter procedure DANIELLE GRIGSBY Facility:[facility] Start: 09-27-2018 End: 09-27-2018 Patient encounter procedure DANIELLE BOWMAN Facility:[facility] Start: 07-27-2018 End: 07-27-2018 Patient encounter procedure DANIELLE BOWMAN Facility:[facility] Start: 07-12-2018 Patient encounter procedure DANIELLE GRIGSBY Facility:[facility] Start: 06-25-2018 End: 06-25-2018 Patient encounter procedure DANIELLE VOGELClaus Facility:[facility] Start: 06-18-2018 End: 06-18-2018 Patient encounter procedure DANIELLE BOWMAN Facility:[facility] Start: 06-11-2018 End: 06-12-2018 Patient encounter procedure DANIELLE BOWMAN Facility:[facility] Start: 05-07-2018 End: 05-07-2018 Patient encounter procedure DANIELLE BOWMAN Facility:[facility] Procedures Date Procedure Procedure Detail Performing Clinician Start: 09-19-2018 PSA screening DANIELLE GUERRERO Payers Date Payer Category Payer Unknown [id number] 1965 Unknown [id number] 2.16.8 [id number] 1965 Unknown [id number] .16.8 [id number] 1965 Unknown [id number] .16.8 [id number] 1965 Unknown [id number] 2.16.8 [id number] 1965 Unknown [id number] 2.16.8 [id number] 1965 Unknown [id number] 2.16.8 [id number] 1965 Unknown [id number] 2.16.8 [id number] 1965 Unknown [id number] .16.8 [id number] 1965 Unknown [id number] 2.16.8 [id number] 1965 Unknown [id number] Summary Purpose Family History No Family History [...] DATE CREATED AUTHOR AUTHOR'S ORGANIZ ATION 06/02/2023 [facility] DATE CREATED AUTHOR AUTHOR'S ORGANIZ ATION 06/08/2023 [facility] FOR RECORDS PERTAINING TO PATIENTS WHO ARE [...] BE BASED ON THE PRIMARY CLINICAL RECORDS. [facility] [employer] provides no warranty or guarantee of the accuracy or completeness of information in this document.
[2023-08-14 15:30] LABS: Absolute Lymphocyte Count 2.47 X10^3/uL (0.83-4.51); Absolute Neutrophil Count 5.3 X10^3/uL (2.0-7.7); Basophil# 0.09 X10^3/uL; Eosinophils% 3.3 % (0-5); Hematocrit 42.6 % (40-54); Hemoglobin 14.2 g/dL (13.0-16.5); Lymphocyte # 2.47 X10^3/ul (0.83-4.51); Lymphocyte % 26.9 % (19-41); Mean Corp Hgb Conc 33.3 g/dL (32-36); Mean Corpuscular Hgb 30.4 pg (27.0-32.0); Mean Corpuscular Volume 91.2 fL (80-94); Mean Platelet Vol. 11.1 fl (6.2-12.0); Monocyte# 0.95 X10^3/uL; Monocyte% 10.3 % (0-10); NRBC Flagged by Analyzer 0 % (0-5); Neutrophil % 57.6 % (47-70); Platelet Count 270 K/mm3 (150-450); RBC Distribution Width CV 12.7 % (11.6-14.6); Red Blood Count 4.67 M/mm3 (4.6-6.2); White Blood Count 9.2 K/mm3 (4.4-11.0)
[2023-08-14 16:20] LABS: Anion Gap 6 (5-15); BUN 23 mg/dL (7-18); BUN/Creat Ratio 25.2 RATIO (10-20); Calcium,Total 9.3 mg/dL (8.5-10.1); Chloride 104 mmol/L (98-107); Creatinine, Serum 0.91 mg/dL (0.70-1.30); EST Glomerular Filtration Rate 91 mL/min (>60); Est Glom Filt Rate - Afr Amer 111 mL/min (>60); Glucose 92 mg/dL (74-106); Potassium 4.8 mmol/L (3.5-5.1); Sodium Level 137 mmol/L (136-145)
== END | disposition home or self-care (01) ==
LOC: LAB 14:16
PROVIDERS: Referring Provider Nurse Practitioner Gerontology; Visit Provider Nurse Practitioner Gerontology
DX: R94.39 Abnormal result of other cardiovascular function study (principal); I42.9 Cardiomyopathy, unspecified
CPT/HCPCS: 36415; 80048; 85025

== ENCOUNTER 2023-09-06 08:25 | Day surgery (SDC) | payer BC, SELFPAY ==
[2023-08-22 16:45] LABS: Anion Gap 6 (5-15); BUN 24 mg/dL (7-18); Calcium,Total 9.1 mg/dL (8.5-10.1); Chloride 102 mmol/L (98-107); EST Glomerular Filtration Rate 67 mL/min (>60); Est Glom Filt Rate - Afr Amer 81 mL/min (>60); Glucose 117 mg/dL (74-106); Potassium 3.8 mmol/L (3.5-5.1); Sodium Level 136 mmol/L (136-145)
[2023-09-05 07:27] VITALS: BMI 22.6
--- NOTE | 2023-09-06 10:25 | CL.D_ITS ---
Patient Name: JEFFREY BROWNING Study Date: 09/06/2023 Performing: Angela Dan MD Ht: 74 inches 187.96 cm : 1965 Wt: 176 lbs 79.83 kg Age: 57 Gender: male BSA: 2.06 PROCEDURE(S) PERFORMED DC02-(35360)C/COR CLINICAL PROFILE AND INDICATIONS Indications: Cardiomyopathy, Suspected CAD Heart Failure: NYHA Class: 2 Stress/Imaging Stress Test w/SPECT MPI: Yes Result: Positive Intermediate RiskStress Test with SPECT MPI: Positive Intermediate Risk CONCLUSIONS No angiographic CAD LVEDP 14 mm Hg RECOMMENDATIONS Risk factor modification DESCRIPTION OF PROCEDURE The patient arrived to the procedure lab. The risks and benefits of the procedure as well as a full description of our services here and current unavailability of surgical backup were fully explained to the patient and/or their significant other prior to the catheterization. The Timeout was completed, verifying the correct patient and procedure. The patient's procedural site was prepped and draped in the usual fashion. Local anesthetic was given subcutaneously to right radial region with Lidocaine 2%. Using a modified Seldinger technique, arterial access was obtained via the right radial artery, a 6Fr sheath was inserted. Left Coronary Artery selective angiography was performed in multiple views using a 5 Fr. 4.0 Endeavor catheter. LV to AO pullback pressures were then recorded. Right Coronary Artery selective angiography was then performed in multiple views using a 5 Fr. 3DRC (Nasir) catheter.The arterial sheath was pulled and a TR Band was applied for hemostasis w/ 12ml air CORONARY ANGIOGRAPHY DOMINANCE: Right Dominant LEFT MAIN: Angiographically normal LEFT ANTERIOR DESCENDING ARTERY: Angiographically normal CIRCUMFLEX ARTERY: Angiographically normal RIGHT CORONARY ARTERY: Angiographically normal COMPLICATIONS No Complications PROCEDURE MEDICATIONS Versed 1 mg IV Fentanyl 50 mcg IV Oxygen: 2 L/min via nasal cannula Heparin 3000 unit(s) IV 09/06/2023 10:06:24 SUMMARY OF HEMODYNAMIC DATA Time AIR REST AO 92/51 (67) SA 10:07:47 LV 86/6, 14 10:12:22 LV 81/6, 14 10:12:30 LVp 86/5, 12 10:12:35 AOp 83/41 (59) 10:12:43 AIR REST 10:23:13 AIR REST ECG 10:23:13 Signed By Angela Dan MD On 09/06/2023 10:24:50 Angela Dan MD
== END 2023-09-06 13:50 | disposition home or self-care (01) ==
PROVIDERS: Referring Provider Internal Medicine Cardiovascular Disease; Visit Provider Internal Medicine Cardiovascular Disease
DX: I50.22 Chronic systolic (congestive) heart failure (principal); I42.9 Cardiomyopathy, unspecified; Z79.82 Long term (current) use of aspirin; Z79.899 Other long term (current) drug therapy; F17.210 Nicotine dependence, cigarettes, uncomplicated; E78.5 Hyperlipidemia, unspecified; F10.10 Alcohol abuse, uncomplicated
CPT/HCPCS: 36415; 80048; 93454; 99152; 99153; J7040; Q9967; C1769; C1894

== ENCOUNTER → 2024-01-11 | Outpatient (CLI) | payer BC, SELFPAY ==
--- NOTE | 2024-01-11 14:51 | ECHOL_ITS ---
Reason For Study: DYSPNEA Procedure This was a limited 2D transthoracic echocardiogram. Myocardial strain analysis was performed in this exam to aid in the assessment of cardiac function. Exam performed in department. Left Ventricle Normal size and thickness. Left ventricular systolic ejection fraction estimated at 45 to 50%. Global longitudinal strain -17.4% which is borderline normal. Right Ventricle Normal right ventricle. Atria The left and right atria are normal. Mitral Valve The mitral valve is structurally normal. No prolapse or stenosis seen. Tricuspid Valve Normal tricuspid valve. Aortic Valve Trisinus/trileaflet aortic valve. Pulmonic Valve The pulmonic valve is not well visualized. Great Vessels The aortic root is not well visualized. Pericardium/Pleural No pericardial effusion. MMode/2D Measurements & Calculations LVIDd: 6.2 cm IVSd: 1.1 cm LAV(MOD-bp): 48.7 ml LVIDs: 5.2 cm LVPWd: 1.1 cm LAV(MOD-bp) Indexed: 23.9 ml/m2 FS: 15.6 % LAV(MOD-sp2): 45.5 ml LAV(MOD-sp4): 53.0 ml SV(MOD-sp4): 71.0 ml LVAd ap4: 40.7 cm2 LVAd ap2: 48.3 cm2 LVLd ap4: 9.1 cm LVLd ap2: 9.9 cm EDV(MOD-sp4): 148.9 ml EDV(MOD-sp2): 198.9 ml EDV(sp4-el): 155.2 ml EDV(sp2-el): 200.6 ml LVAs ap4: 27.3 cm2 LVAs ap2: 31.4 cm2 LVLs ap4: 8.1 cm LVLs ap2: 8.0 cm ESV(MOD-sp4): 77.9 ml ESV(MOD-sp2): 103.2 ml ESV(sp4-el): 78.5 ml ESV(sp2-el): 104.7 ml EF(MOD-sp4): 47.7 % EF(MOD-sp2): 48.1 % EF(sp4-el): 49.4 % SV(MOD-sp2): 95.7 ml SV(sp4-el): 76.7 ml LA A4 area: 19.0 cm2 LA dimension(2D): 4.3 cm RA A4 area: 16.0 cm2 ECHO/Echo, Limited Study Interpretation Summary Left ventricular systolic ejection fraction estimated at 45 to 50%. Global long itudinal strain - 17.4% which is borderline normal. Ordering Physician: Lety Christianosn Referring Physician: Lety Christianson Performed By: Cora Tang RCS
== END | disposition home or self-care (01) ==
LOC: CVS 14:48
PROVIDERS: Referring Provider Physician Assistant Medical; Visit Provider Physician Assistant Medical
DX: I42.9 Cardiomyopathy, unspecified (principal); I50.22 Chronic systolic (congestive) heart failure
CPT/HCPCS: 93308